=== PATIENT | female | born 2000 | race Caucasian/White ===

== ENCOUNTER 2023-01-22 11:59 | Emergency (ER) | payer OTHER ==
[~2023-01-22] VITALS: Ht 167.6 cm; Wt 97.5 kg
[2023-01-22 12:09] VITALS: O2SAT 97
[2023-01-22] MEDS ORDERED: NALO4SPR BNOSTRILS (13:02)
--- NOTE | 2023-01-22 14:15 | NUR ---
[facility]
== END 2023-01-22 14:18 ==
LOC: ER 11:59
DX: T19.2XXA Foreign body in vulva and vagina, initial encounter (principal); F19.90 Other psychoactive substance use, unspecified, uncomplicated; Z79.899 Other long term (current) drug therapy; X58.XXXA Exposure to other specified factors, initial encounter; Y93.89 Activity, other specified; Y92.89 Other specified places as the place of occurrence of the external cause; Y99.8 Other external cause status
CPT/HCPCS: A4663